=== PATIENT | male | born 1965 | race Caucasian/White ===

== ENCOUNTER 2017-05-06 07:02 | Day surgery (SDC) | payer OTHER ==
[2017-05-06] MEDS ORDERED: TAMSULOSIN HCL 0.4 MG CAP.ER.24H (FP) ONE (07:46)
[2017-05-06 08:16] VITALS: BMI 20.4
[2017-05-06] MEDS ORDERED: MIDAZOLAM HCL 2 MG/2 ML SINGLE DOSE VIAL ONE (09:11)
[2017-05-06] MEDS ORDERED: ROPIVACAINE HCL 0.5% 30ML VIAL ONE (09:11)
[2017-05-06] MEDS ORDERED: DEXAMETHASONE SOD PHOSPHATE/PF 10 MG/ML SDV ONE (09:11)
[2017-05-06] MEDS ORDERED: PROPOFOL 20 ML ONE ×3 (09:43→10:13)
[2017-05-06] MEDS ORDERED: ROCURONIUM BROMIDE 50 MG/5 ML VIAL ONE (09:44)
[2017-05-06] MEDS ORDERED: DEXAMETHASONE SOD PHOSPHATE 4 MG/1 ML VIAL ONE (09:54)
[2017-05-06] MEDS ORDERED: ceFAZolin SODIUM 1 GM VIAL ONE (09:54)
[2017-05-06] MEDS ORDERED: ONDANSETRON 4 MG/2 ML VIAL ONE (09:54)
[2017-05-06] MEDS ORDERED: GLYCOPYRROLATE 0.2 MG/1 ML VIAL ONE (10:34)
[2017-05-06] MEDS ORDERED: NEOSTIGMINE METHYLSULFATE 0.5 MG/ML - 10 ML MDV ONE (10:34)
[2017-05-06] MEDS ORDERED: ONDANSETRON 4 MG/2 ML VIAL IVPUSH PRN (11:04)
[2017-05-06] MEDS ORDERED: oxyCODONE HCL 5 MG TABLET PO PRN (11:04)
[2017-05-06] MEDS ORDERED: LACTATED RINGERS SOLUTION 1,000 ML IV SCH (11:15)
[2017-05-06] MEDS ORDERED: LABETALOL HCL 5 MG/1 ML (100MG/20 ML VIAL) IVPUSH ONE (11:21)
--- NOTE | 2017-05-06 12:07 | OP ---
DATE OF OPERATION: 05/06/2017 PREOPERATIVE DIAGNOSIS: Bilateral inguinal hernias. POSTOPERATIVE DIAGNOSIS: Bilateral direct inguinal hernias with attenuation of direct inguinal floor. PROCEDURE: Bilateral laparoscopic inguinal herniorrhaphy with mesh. SURGEON: Rainer Chaudhary MD CONDUCTOR SLEEPING CAR: Mani Hay DO ANESTHESIA: Kate Womack MD (general). ESTIMATED BLOOD LOSS: Minimal. SPECIMEN: None. INDICATION FOR PROCEDURE: This is a 52-year-old gentleman who was lifting a bunch of doors at work and subsequently developed a bulge and pain in the left groin. On physical examination, he has an obvious left inguinal hernia and suspected right inguinal hernia and is here for operative repair. DESCRIPTION OF PROCEDURE: The patient was identified and appropriately positioned on the operating room table. After placement of general anesthesia, the abdomen was prepped and draped in the usual sterile fashion with ChloraPrep. An infraumbilical incision was made and deepened to subcutaneous tissue. The fascia of the rectus muscle on the right identified. The muscles split. Under direct vision, a dissector balloon followed by a structural balloon placed. The following structures on the right side were identified: Pubic tubercle, Simeon's ligament, inferior epigastric vessels, spermatic cord, and lateral abdominal wall. During this dissection, the patient was noted to have direct inguinal floor to be markedly attenuated. He had an indirect inguinal hernia. This was reduced back into the preperitoneal space. A 4.5 x 6 piece of Versatex mesh was keyhole placed through the suprapubic port site. The mesh was wrapped around the cord structures laterally to reconstruct the internal ring. Laterally, mesh anchored to the anterior abdominal wall and lateral abdominal wall. Medially, the mesh was anchored to the anterior abdominal wall, pubic tubercle, and Simeon's ligament. Upon completion of the right side, similar structures on the left side identified. On the right side, the patient was noted to have, again attenuated direct floor and a large indirect inguinal hernia sac. This was reduced back in the preperitoneal space. A 5-mm left lower quadrant PE port placed to facilitate reduction of this sac. Once this was educed, a 4.5 x 6 piece of Versatex mesh was keyhole placed through the suprapubic port site. The mesh was wrapped around the cord structures laterally to reconstruct the internal ring. Laterally, the mesh was anchored to the anterior abdominal wall and lateral abdominal wall. Medially, the mesh well overlapped in the midline and anchored to the anterior abdominal wall and Simeon 's ligament. The preperitoneal space was desufflated under direct vision. The operative field was examined and noted to be hemostatic. Fascia at both port sites were reapproximated with interrupted 0 Vicryl suture. All skin closed with 4-0 Biosyn followed by Dermabond. At the conclusion of the case, sponge and needle counts were correct. ATTESTATION: Brief operative note handwritten on the preprinted form. [facility] will be queried prior to giving any narcotics and will be done electronically. Silvio RAMIREZ [id number] cc: Taurus De La Torre MD MTDD
[2017-05-06] MEDS ORDERED: oxyCODONE HCL 5 MG TABLET ONE (12:26)
[2017-05-06 15:39] VITALS: TEMP 97.8
[2017-05-06 15:40] VITALS: BP 131/80; PULSE 72
== END 2017-05-06 15:15 | disposition home or self-care (01) ==
LOC: FASU 07:02
PROVIDERS: ATTEND Surgery
PROC: 0YUA4JZ Supplement Bilateral Inguinal Region with Synthetic Substitute, Percutaneous Endoscopic Approach (ICD-10-PCS; principal; 2017-05-06 09:41)
DX: K40.20 Bilateral inguinal hernia, without obstruction or gangrene, not specified as recurrent (principal)
CPT/HCPCS: 94760